=== PATIENT | male | born 1990 | race Caucasian/White ===

== ENCOUNTER 2017-02-26 17:31 | Emergency (ER) | payer BC ==
[~2017-02-26] VITALS: Ht 185.4 cm; Wt 77.5 kg
[2017-02-26 17:36] VITALS: TEMP 36.7; Ht 185.4 cm; Wt 77.5 kg
--- NOTE | 2017-02-26 18:00 | EMERGENCY ROOM VISIT NOTE ---
ED Visit Note First contact with patient: 17:58 CHIEF COMPLAINT: Wrist injury HISTORY OF PRESENT ILLNESS: This 26-year-old male patient presents to the emergency department complaining of pain in the right wrist after falling onto outstretched hand while playing basketball this afternoon. The patient is not able to move their wrist due to pain. The patient states the pain is throbbing/ aching and 8/10. No laceration, no weakness. No numbness or tingling. The patient denies any other injury. The patient is minimally able to move their fingers and elbow, but states this greatly increases the pain in his wrist. The patient has not had a previous fracture to this wrist. The patient has taken ibuprofen for the pain 5 hours ago. The patient is right-hand dominant. REVIEW OF SYSTEMS: A 6 system review of systems was performed with positives and pertinent negatives in the HPI. ALLERGIES: See chart MEDICATIONS: See chart PMH: See chart SOCIAL HISTORY: See chart PHYSICAL EXAM: Vital Signs: Reviewed Nurse's notes, vital signs stable. GENERAL : Pleasant and cooperative, in no acute distress, but appears to be in pain, well-developed, well-nourished. NEURO: Alert and oriented to person place and time. Normal sensation to light and sharp touch. MUSCULOSKELETAL: There is no deformity of the right wrist. There is tenderness and edema over distal wrist. There is snuff box tenderness. Range of motion is limited due to pain. There is no tenderness of the elbow, hand or fingers. Access Analyst strength 4/5 due to pain. Radial pulse 2+. SKIN: Normal and intact. The hand is warm and well perfused with capillary refill less than 2 seconds. 2 small abrasions noted to the lateral right knee. EMERGENCY DEPARTMENT COURSE: I examined the patient. An X-ray of the right wrist was reviewed by myself and radiologist and showed a suspected distracted fracture of the scaphoid bone. A thumb spica Ortho-Glass splint was placed under my direction and the position was satisfactory. Neurovascular status rechecked and intact. Abrasions on right knee were cleansed with saline and Betadine, dressed with antibiotic ointment and Band-Aids. The patient was instructed to follow up with orthopedics, referral contact information provided to the patient. The patient was discharged home in good condition. Problem List Medical Problems: (1) Acute renal failure Status: Resolved Current/Historical Medications No Active Prescriptions or Reported Meds Allergies Coded Allergies: No Known Allergies (Unverified , 02/26/17) Vital Signs Date Time Temp Pulse Resp B/P (MAP) Pulse Ox O2 Delivery O2 Flow Rate FiO2 02/26/17 20:02 69 18 113/80 94 02/26/17 17:36 36.7 72 18 121/70 95 Room Air Medications Administered Medications (Trade) Dose Ordered Sig/Kenneth Route Start Time Stop Time Status Last Admin Dose Admin Ibuprofen (Motrin Tab) 600 mg NOW STAT PO 02/26/17 18:13 02/26/17 18:16 DC 02/26/17 18:13 600 MG Departure Information Impression Primary Impression: Closed fracture of scaphoid of right wrist Dispostion Home / Self-Care Condition GOOD Prescriptions No Active Prescriptions or Reported Meds Referrals Rogerio Nava D.O. Patient Instructions ED Fx Wrist Navicular Conf, [facility] Additional Instructions Wear the wrist splint at all times until you are seen by orthopedics. Keep the splint clean and dry. Apply ice and keep the wrist elevated for the next 48 hrs. Ibuprofen 600mg and Tylenol 1000 mg every 6-8 hours if needed for the pain. Follow up with the orthopedic surgeon for further management of your fracture. Please return to the ER for worsening symptoms, including severe worsening pain , increased swelling, pale or discolored fingers, numbness or tingling in the fingers, or any other concerns. Problem Qualifiers Primary Impression: Closed fracture of scaphoid of right wrist Encounter type: initial encounter Scaphoid bone location: unspecified portion of scaphoid Fracture alignment: displaced Qualified Codes: S62.001A - Unspecified fracture of navicular [scaphoid] bone of right wrist, initial encounter for closed fracture
[2017-02-26] MEDS ORDERED: IBUPROFEN 600 MG TAB PO STA (18:13)
--- NOTE | 2017-02-26 19:12 | DIAGNOSTIC IMAGING REPORT ---
RIGHT WRIST 5 VIEWS CLINICAL HISTORY: Fall with wrist pain. FINDINGS: 5 views of the right wrist are obtained. No prior studies are available for comparison at the time of dictation. The skeletal structures are well mineralized. A distracted fracture of the distal scaphoid is suspected. No additional fracture is clearly seen. Soft tissue edema is present around the wrist. IMPRESSION: Suspect a distracted fracture through the distal scaphoid. Correlation with dedicated scaphoid view is recommended. Electronically signed by: Bhavin Harris M.D. 02/26/2017 7:11 PM Dictated Date/Time: 02/26/2017 7:09 PM
--- NOTE | 2017-02-26 19:14 | DIAGNOSTIC IMAGING REPORT ---
RIGHT FOREARM 2 VIEWS CLINICAL HISTORY: Fall with right arm injury. FINDINGS: AP and lateral views of the right forearm are obtained. Correlation is made with radiographs of the right wrist performed concurrently on 02/26/2017. The skeletal structures are well mineralized. There is no radiographic evidence of radial or ulnar fracture. A distracted fracture is suspected through the distal scaphoid. There is overlying soft tissue edema around the wrist. The elbow joint appears preserved. IMPRESSION: 1. There is no radiographic evidence of right forearm fracture. 2. Suspect a distracted fracture of the distal scaphoid. Electronically signed by: Bhavin Harris M.D. 02/26/2017 7:12 PM Dictated Date/Time: 02/26/2017 7:11 PM
[2017-02-26 20:02] VITALS: BP 113/80; PULSE 69; O2SAT 94
== END 2017-02-26 20:04 | disposition home or self-care (01) ==
LOC: C.EDB 17:32 → C.EDD 20:04
DX: S62.001A Unspecified fracture of navicular [scaphoid] bone of right wrist, initial encounter for closed fracture (principal); W19.XXXA Unspecified fall, initial encounter; Y93.67 Activity, basketball

== ENCOUNTER → 2017-05-11 | Outpatient (CLI) | payer BC ==
--- NOTE | 2017-05-11 16:31 | DIAGNOSTIC IMAGING REPORT ---
RIGHT UPPER EXT JOINT WITHOUT CLINICAL HISTORY: 27 years-old Male presenting with RT WRIST PAIN Right. TECHNIQUE: Multisequence, multiplanar MR imaging of the right wrist was performed without the use of intravenous contrast. IV contrast: None. COMPARISON: Correlation made to plain radiographs of the right wrist from 04/07/2017. FINDINGS: Localizer images: Unremarkable. Fracture of the waist of the scaphoid with granulation tissue in the fracture plane, suggesting a subacute time course to the injury. Intense bony edema noted proximally at the fracture site as well as in the distal pole. Bony edema of the capitate and lunate as well as the scaphoid. No focal fracture plane is evident through the capitate. No ulnar styloid fracture. Ligamentous structures attaching the distal carpal row to the lunate appear disrupted on at least along the dorsal aspects but possibly both the volar and dorsal aspects (series 5 image 10). This results in abnormal tilt of the lunate with an increase in the lunocapitate angle, which measures approximate 40 degrees. No evidence of perilunate or lunate dislocation. The dorsal attachment of the distal carpal row to the triquetrum may also be disrupted. Pinhole tear in the volar scapholunate interosseous ligament (series 7 image 11). The dorsal scapholunate interosseous ligament is ill-defined and increased in signal intensity likely indicating at least partial tear. Small amount of fluid noted along the volar aspect of the bases of the second and third metacarpal and between the bases of the third and fourth metacarpals. The triangular fibrocartilage complex is intact. The lunotriquetral interosseous ligament is intact. Carpal tunnel normal. Median nerve normal. Guyon's canal normal. Radial nerve normal. Extensor and flexor tendons normal-appearing. IMPRESSION: 1. Complex injury with both greater arc and lesser arc injury patterns, involving scaphoid waist fracture, suspected interruption of at least the dorsal scapholunate ligament with resulting rotatory subluxation of the lunate. Additional injuries as above. Further evaluation with MR arthrogram could be considered. Electronically signed by: Rogerio Rodriguez M.D. 05/11/2017 4:30 PM Dictated Date/Time: 05/11/2017 3:00 PM
== END | disposition home or self-care (01) ==
LOC: C.MRIBC 13:46
PROVIDERS: ATTEND Orthopaedic Surgery
DX: S62.001A Unspecified fracture of navicular [scaphoid] bone of right wrist, initial encounter for closed fracture (principal); M25.531 Pain in right wrist; X58.XXXA Exposure to other specified factors, initial encounter